=== PATIENT | female | born 1990 | race Hispanic/Latino ===

== ENCOUNTER 2016-08-22 11:05 | Emergency (ER) | payer SELFPAY ==
[2016-08-22 13:33] LABS: Bacteria,Urine 1+ /HPF (Negative); Bilirubin,Urine NEG (Negative); Blood,Urine NEG (Negative); Ketones,Urine NEG (Negative); Leukocyte Esterase,Urine MOD (Negative); Mucus,Urine FEW /HPF; Nitrite,Urine NEG (Negative); Protein,Urine <15 mg/dL mg/dL (Negative); Urobilinogen,Urine < 2.0 mg/dL (<2.0)
[2016-08-22 13:49] LABS: Basophils % (Auto) 0.7 % (0.0-1.8); Hematocrit 38.7 % (30.3-42.9); Hemoglobin 12.6 gm/dl (10.1-14.3); Mean Corpuscular HGB Conc 33 % (30-34); Mean Corpuscular Hemoglobin 30 pg (28-32); Mean Corpuscular Volume 91 fl (79-97); Platelet Count 225 K/mm3 (140-440); Red Blood Count 4.27 M/mm3 (3.65-5.03); Red Cell Distribution Width 12.9 % (13.2-15.2); White Blood Count 7.3 K/mm3 (4.5-11.0)
--- NOTE | 2016-08-22 15:03 | Emergency Department Report ---
Entered by ANN MARIE KAY, acting as scribe for BASIL TORRES PA. ED Female HPI - General Chief complaint: Urogenital-Female Stated complaint: NOT SURE PREG Time Seen by Provider: 08/22/16 11:59 Source: patient Mode of arrival: Ambulatory Limitations: No Limitations - History of Present Illness Initial comments: 26 y/o female patient here for evaluation of potential . She took two home test which were positive. She denies vaginal bleeding, nausea, vomiting no LE swelling. She does report urinary frequency but denies dysuria. No other complaints noted. Requesting to the resolve because she says she had negative experience at another hospital MD Complaint: other (SHEENT hair) Severity scale (0 -10): 0 Improves with: none Worsens with: none Are you Now?: Yes ( she has 2 positive home test) Last Menstrual Period: 08/15/16 EDC: 05/22/17 Associated Symptoms: other (here for check). denies: vaginal discharge, vaginal bleeding, abdominal pain, nausea/vomiting, fever/chills, headaches, loss of appetite, dysuria, hematuria, rash, seizure, shortness of breath, syncope, weakness - Related Data Sexually active: Yes Previous Rx's Medication Instructions Recorded Last Taken Type Nitrofurantoin [place]/M-Cryst 100 mg PO Q12HR #14 capsule 08/22/16 Unknown Rx [Macrobid CAP] Allergies Allergy/AdvReac Type Severity Reaction Status Date / Time No Known Allergies Allergy Unverified 08/22/16 11:13 ED Review of Systems Comment: All other systems reviewed and negative Constitutional: no symptoms reported. denies: chills, fever ENT: denies: ear pain, throat pain Respiratory: no symptoms reported. denies: cough, shortness of breath Cardiovascular: denies: chest pain, palpitations Gastrointestinal: denies: abdominal pain, nausea, vomiting Genitourinary: frequency. denies: urgency, dysuria, hematuria, discharge Musculoskeletal: denies: back pain Skin: denies: rash Neurological: denies: headache, weakness, numbness ED Past Medical Hx - Past Medical History Previous Medical History?: Yes Additional medical history: vaginal delivery x 2 - Surgical History Past Surgical History?: No - Family History Family history: no significant - Social History Smoking Status: Current Every Day Smoker Substance Use Type: Marijuana, Methamphetamines - Medications Home Medications: Home Medications Medication Instructions Recorded Confirmed Last Taken Type Nitrofurantoin [place]/M-Cryst 100 mg PO Q12HR #14 capsule 08/22/16 Unknown Rx [Macrobid CAP] ED Physical Exam - General Limitations: No Limitations General appearance: alert, in no apparent distress - Head Head exam: Present: atraumatic, normocephalic, normal inspection - Eye Eye exam: Present: normal appearance, PERRL, EOMI. Absent: scleral icterus, conjunctival injection, periorbital swelling, periorbital tenderness - ENT ENT exam: Present: normal exam, normal orophraynx, mucous membranes moist, TM's normal bilaterally, normal external ear exam - Neck Neck exam: Present: normal inspection, full ROM. Absent: tenderness, lymphadenopathy - Respiratory Respiratory exam: Present: normal lung sounds bilaterally. Absent: respiratory distress - Cardiovascular Cardiovascular Exam: Present: regular rate, normal rhythm, normal heart sounds - GI/Abdominal GI/Abdominal exam: Present: soft, normal bowel sounds. Absent: tenderness, guarding, rebound - Extremities Exam Extremities exam: Present: normal inspection, full ROM, normal capillary refill. Absent: tenderness, pedal edema, joint swelling, calf tenderness - Back Exam Back exam: Present: normal inspection, full ROM - Neurological Exam Neurological exam: Present: alert, oriented X3 - Psychiatric Psychiatric exam: Present: normal affect, normal mood - Skin Skin exam: Present: warm, dry, intact, normal color. Absent: rash ED Course Vital Signs 08/22/16 11:14 Temperature 97.5 F L Pulse Rate 88 Respiratory 18 Rate Blood Pressure 104/61 O2 Sat by Pulse 100 Oximetry - Reevaluation(s) Reevaluation #1: 08/22/16 14:57 Patient had an uneventful ED stay. ED Medical Decision Making - Lab Data Result diagrams: 08/22/16 13:37 Lab Results 08/22/16 08/22/16 08/22/16 Range/Units 13:37 13:37 Unknown WBC 7.3 (4.5-11.0) K/mm3 RBC 4.27 (3.65-5.03) M/mm3 Hgb 12.6 (10.1-14.3) gm/dl Hct 38.7 (30.3-42.9) % MCV 91 (79-97) fl MCH 30 (28-32) pg MCHC 33 (30-34) % RDW 12.9 L (13.2-15.2) % Plt Count 225 (140-440) K/mm3 Lymph % (Auto) 30.9 (13.4-35.0) % [place] % (Auto) 6.6 (0.0-7.3) % Eos % (Auto) 1.0 (0.0-4.3) % Baso % (Auto) 0.7 (0.0-1.8) % Lymph # 2.2 (1.2-5.4) K/mm3 [place]ier # 0.5 (0.0-0.8) K/mm3 Eos # 0.1 (0.0-0.4) K/mm3 Baso # 0.1 (0.0-0.1) K/mm3 Seg Neutrophils % 60.8 (40.0-70.0) % Seg Neutrophils # 4.4 (1.8-7.7) K/mm3 HCG, Quant < 2 (0-4) mIU/mL Urine Color Yellow (Yellow) Urine Turbidity Clear (Clear) Urine pH 6.0 (5.0-7.0) Ur Specific [place] 1.023 (1.003-1.030) Urine Protein <15 mg/dl (Negative) mg/dL Urine Glucose (UA) Neg (Negative) mg/dL Urine Ketones Neg (Negative) mg/dL Urine Blood Neg (Negative) Urine Nitrite Neg (Negative) Urine Bilirubin Neg (Negative) Urine Urobilinogen < 2.0 (<2.0) mg/dL Ur Leukocyte Esterase Mod (Negative) Urine WBC (Auto) 3.0 (0.0-6.0) /HPF Urine RBC (Auto) 3.0 (0.0-6.0) /HPF U Epithel Cells (Auto) 9.0 (0-13.0) /HPF Urine Bacteria (Auto) 1+ (Negative) /HPF Urine Mucus Few /HPF Urine HCG, Qual Negative (Negative) - Medical Decision Making ED Course: Patient with urinary tract infection without hematuria, Negative test and CBC is stable. I discussed treatment plan and diagnoses with patient. She is to follow-up with outside [facility] status post urinary tract infection. Patient discharged home with prescription for Macrobid. She was informed on her lab results. Discharge home in stable condition. ED Disposition Clinical Impression: Acute cystitis without hematuria, Negative test Disposition: DISCHARGED TO HOME OR SELFCARE Is pt being admited?: No Does the pt Need Aspirin: No Condition: Stable Instructions: Urinary Tract Infection in Women (ED) Additional Instructions: Follow-up with [facility] safe sex As you fluid intake and take antibiotic for urinary tract infection as ordered. Prescriptions: Nitrofurantoin [place]/M-Cryst [Macrobid CAP] 100 mg PO Q12HR #14 capsule Referrals: [facility] [Outside] - 08/26/16 Forms: Work/School Release Form(ED) This documentation as recorded by the ELIZA braun SHALANE,accurately reflects the service I personally performed and the decisions made by me,BASIL TORRES PA.
[2016-08-22 15:11] VITALS: BP 92/67
== END 2016-08-22 15:10 | disposition home or self-care (01) ==
LOC: ED 11:05
DX: N30.00 Acute cystitis without hematuria (principal); F17.200 Nicotine dependence, unspecified, uncomplicated; F12.10 Cannabis abuse, uncomplicated; F15.10 Other stimulant abuse, uncomplicated
CPT/HCPCS: 36415; 81001; 81025; 84702; 85025; 99283

== ENCOUNTER 2016-09-07 17:35 | Emergency (ER) | payer SELFPAY | END 2016-09-07 19:13 | disposition left against medical advice (07) | LOC: ED 17:35 | DX: Z32.00 Encounter for pregnancy test, result unknown (principal); Z53.21 Procedure and treatment not carried out due to patient leaving prior to being seen by health care provider ==